=== PATIENT | female | born 1975 | race Caucasian/White ===

== ENCOUNTER → 2016-05-12 | Outpatient (CLI) | payer OTHER ==
--- NOTE | 2016-05-12 12:50 | KCIC ---
Chest PA and lateral Indication: Bronchitis difficulty breathing. Time of exam 12:31 p.m. No prior studies are available for comparison. The heart size is normal. The lungs are clear. No infiltrates are detected. No effusion or pneumothorax is identified. Impression: No acute cardiopulmonary process is detected. Electronically signed by: Tavo Roberts MD (May 12, 2016 12:49:21)
== END | disposition home or self-care (01) ==
LOC: KCIC 12:16
PROVIDERS: ATTEND Family Medicine
DX: J40 Bronchitis, not specified as acute or chronic (principal); R06.00 Dyspnea, unspecified
CPT/HCPCS: 71020

== ENCOUNTER → 2016-05-20 | Outpatient (CLI) | payer OTHER ==
--- NOTE | 2016-05-20 10:23 | KCIC ---
PROCEDURE CT chest without contrast. HISTORY Sternal discomfort. History of bronchitis and April 2016. TECHNIQUE Helical CT imaging of the chest is performed without IV contrast. PQRS: One or more the following individualized dose reduction techniques were utilized for the study: 1. Automated exposure control. 2. Adjustment of the mA and/or kV according to patient size. 3. Use of iterative reconstruction technique. COMPARISON None. FINDINGS 6 millimeter hypodense right thyroid nodule. There is no adenopathy in the chest, limited evaluation of the sandra without IV contrast. There is residual thymus in the anterior mediastinum, normal variant for a patient of this age. Cardiac size is normal, no pericardial effusion. The great vessels are normal caliber. Central airways are patent. No pleural abnormality. The lungs are clear. Visualized upper abdomen unremarkable. No acute bone abnormality. The sternum is intact. There is degenerative spondylosis of C6/C7. IMPRESSION No acute cardiopulmonary process. Electronically signed by: Jaya Joy MD (May 20, 2016 10:22:55)
== END | disposition home or self-care (01) ==
LOC: KCIC CT 09:57
PROVIDERS: ATTEND Family Medicine
DX: E04.1 Nontoxic single thyroid nodule (principal); M47.892 Other spondylosis, cervical region
CPT/HCPCS: 71250

== ENCOUNTER → 2017-03-20 | Outpatient (CLI) | payer OTHER | END | disposition home or self-care (01) | LOC: SLPLAB 18:44 | DX: G47.33 Obstructive sleep apnea (adult) (pediatric) (principal) | CPT/HCPCS: 95810 ==

== ENCOUNTER → 2017-12-28 | Outpatient (CLI) | payer OTHER ==
--- NOTE | 2017-12-28 17:01 | KCIC ---
History: Intermittent left foot pain for 1-2 years. Great toe paresthesia for one month. Comparison: None. Findings: AP, lateral, and oblique views of the left foot. No acute fracture or dislocation is identified. No significant degeneration is seen. Small plantar calcaneal enthesophyte is present. Impression: No acute osseous abnormality identified. Electronically signed by: Meño Dasilva MD (12/28/2017 4:57 PM) [facility]
== END | disposition home or self-care (01) ==
LOC: KCIC 16:17
PROVIDERS: ATTEND Family Medicine
DX: M79.672 Pain in left foot (principal); R20.2 Paresthesia of skin
CPT/HCPCS: 73630

== ENCOUNTER → 2018-07-18 | Outpatient (CLI) | payer OTHER ==
--- NOTE | 2018-07-18 15:42 | KCIC ---
Pelvic ultrasound HISTORY: Pelvic pressure. Transabdominal scan: Uterus and ovaries are poorly seen Endovaginal scan: Uterus measures 8.4 x 6.0 x 4.1 cm. Endometrium measures 7 mm without significant heterogeneity. The uterus demonstrates a heterogeneous appearance. The uterus is retroverted. Nabothian cyst is identified. The left ovary measures 3.1 cm with intact blood supply. The right ovary measures 3.6 cm with intact blood supply. Complex septated cyst of the right ovary measures 2 cm. Separate solid-appearing nodule of the right ovary measures 14 mm diameter and demonstrates some internal vascularity. Free fluid identified within the cul-de-sac. IMPRESSION: 1. Solid vascular mass of the right ovary, uncertain etiology but warrants further workup. Follow-up ultrasound in 2-6 weeks could be of benefit. 2. Complex appearing septated cyst of the right ovary measures 2 cm. 3. Mild free pelvic fluid. Electronically signed by: Meño Canales MD (07/18/2018 3:40 PM) [facility]
== END | disposition home or self-care (01) ==
LOC: KCIC US 12:02
PROVIDERS: ATTEND Nurse Practitioner Family
DX: N83.8 Other noninflammatory disorders of ovary, fallopian tube and broad ligament (principal); N88.8 Other specified noninflammatory disorders of cervix uteri; N94.89 Other specified conditions associated with female genital organs and menstrual cycle
CPT/HCPCS: 76830; 76856

== ENCOUNTER → 2018-08-17 | Outpatient (CLI) | payer OTHER ==
--- NOTE | 2018-08-17 15:47 | KCIC ---
Transabdominal and transvaginal sonography of the pelvis Clinical indications: Follow-up of right ovarian nodule COMPARISON: July 18, 2018. Transabdominal sonography: The uterus and ovaries are poorly visualized. The urinary bladder is not significantly distended. Therefore, transvaginal sonography will be performed. Transvaginal sonography: The uterus is retroverted. The longitudinal and AP and transverse dimensions of the uterus are 8.4 cm and 3.8 cm and 5.6 cm respectively. There is a small amount of fluid within the cervical canal. The endometrium is echogenic and measures 10 mm in thickness which is normal. No hyperemia is seen within the endometrial canal. A nabothian cyst of the cervix is seen. No uterine mass is seen otherwise. The left ovary measures 4.1 cm and 1.8 cm and 2.6 cm in size and contains a 17 mm follicular cyst. Color Doppler flow is seen within left ovary. The right ovary measures 2.9 cm and 3.4 cm and 2.4 cm in size. Color Doppler flow is seen within the right ovary. There is a follicular cyst measuring 14 mm in size. There is a complex solid appearing nodule measuring 14 mm x 13 mm x 13 mm. It measured 14 mm x 11 mm x 13 mm previously. Therefore, it has not changed significantly in size. Internal color flow is seen within it. No free fluid is seen around the left or right ovary. There is a small amount of physiologic free fluid within the cul-de-sac. IMPRESSION: Stable solid nodule of the right ovary. Recommend continued sonographic follow-up in 6 months. Bilateral follicular ovarian cysts. Electronically signed by: Yves Iniguez MD (08/17/2018 3:43 PM) [place] [id number]
== END | disposition home or self-care (01) ==
LOC: KCIC US 10:24
PROVIDERS: ATTEND Obstetrics & Gynecology
DX: N83.02 Follicular cyst of left ovary (principal); N83.01 Follicular cyst of right ovary; N83.8 Other noninflammatory disorders of ovary, fallopian tube and broad ligament; N88.8 Other specified noninflammatory disorders of cervix uteri
CPT/HCPCS: 76830; 76856

== ENCOUNTER → 2018-11-16 | Outpatient (CLI) | payer OTHER ==
[~2018-11-16] MED LIST: CYAN250012 PO; DICL75TA PO; MULT1TAB52 PO; OXYC1TAB19 PO; PYRI100T PO
[2018-11-16 13:26] LABS: BASO # 0.1 x10^3/uL (0.0-0.2); BASO % 1 % (0-3); EOS % 0 % (0-3); HEMATOCRIT 37.7 % (36.0-47.0); HEMOGLOBIN 12.9 g/dL (12.0-15.5); LYMPH # 2.7 x10^3/uL (1.0-4.8); LYMPH % 35 % (24-48); MEAN CORPUSCULAR HEMOGLOBIN 32 pg (25-35); MEAN CORPUSCULAR HGB CONC 34 g/dL (31-37); MEAN CORPUSCULAR VOLUME 93 fL (79-100); MONO # 0.7 x10^3/uL (0.0-1.1); MONO % 9 % (0-9); NEUT # 4.3 x10^3/uL (1.8-7.7); NEUT % 56 % (31-73); PLATELET COUNT 265 x10^3/uL (140-400); RED BLOOD COUNT 4.08 x10^6/uL (3.50-5.40); RED CELL DISTRIBUTION WIDTH 13.1 % (11.5-14.5); WHITE BLOOD COUNT 7.8 x10^3/uL (4.0-11.0)
--- NOTE | 2018-11-16 13:27 | NUR ---
Patient demonstrated use of incentive spirometry and achieved 3000ml
[2018-11-16 13:30] LABS: BILIRUBIN,URINE NEGATIVE (NEG); CLARITY,URINE CLEAR; COLOR,URINE YELLOW; NITRITE,URINE NEGATIVE (NEG); PROTEIN,URINE NEGATIVE (NEG-TRACE)
[2018-11-16 13:46] LABS: BACTERIA,URINE MANY /HPF (0-FEW); RBC,URINE 0 /HPF (0-2); SQUAMOUS EPITHELIAL CELL,UR FEW /LPF
[2018-11-16 13:51] LABS: ALBUMIN 3.5 g/dL (3.4-5.0); ALBUMIN/GLOBULIN RATIO 0.9 (1.0-1.7); CALCIUM 8.8 mg/dL (8.5-10.1); CREATININE 0.8 mg/dL (0.6-1.0); GFR 77.9; POTASSIUM 3.6 mmol/L (3.5-5.1); TOTAL BILIRUBIN 0.4 mg/dL (0.2-1.0); TOTAL PROTEIN 7.2 g/dL (6.4-8.2)
--- NOTE | 2018-11-20 16:38 | NUR ---
PATIENT URINE CULTURE ABNORMAL,WITH UTI AND SYMONE AL RN IN PAT OFFICE CALLED 11/19/2018 AT AROUND 1620. CALLED PATIENT AND HER PHARMACY 11/19/2018. PATIENT WAS CALLED THIS MORNING 10/21/2018 AND SHE SAID SHE STARTED TAKING NITROFURANTOIN 100 MG. 1 TAB BID 11/19/18 EVENING.
== END | disposition home or self-care (01) ==
LOC: SURGPAT 12:30
PROVIDERS: ATTEND Obstetrics & Gynecology
DX: Z01.818 Encounter for other preprocedural examination (principal)
CPT/HCPCS: 36415; 80053; 81001; 85025; 87086; 87186

== ENCOUNTER 2018-11-22 05:45 | Observation (INO) | payer OTHER ==
[~2018-11-22] VITALS: Ht 177.8 cm; Wt 99.7 kg
[2018-11-22] VITALS (9 sets, daily range): BP systolic 120–140; BP diastolic 70–92
[2018-11-22] MEDS ORDERED: fentaNYL PF VIAL 100 MCG/2 ML VIAL IV PRN (07:00)
[2018-11-22] MEDS ORDERED: IV RINGERS,LACTATED 1000ML 1,000 ML IV SCH (07:00)
[2018-11-22] MEDS ORDERED: ONDANSETRON PF 4 MG/2 ML VIAL. IV PRN ×2 (07:00→12:15)
[2018-11-22] MEDS ORDERED: PROCHLORPERAZINE 10 MG/2 ML VIAL. IV PRN (07:00)
[2018-11-22] MEDS ORDERED: DEXAMETHASONE SOD PHOS 4 MG/ML VIAL ONE (07:17)
[2018-11-22] MEDS ORDERED: PROPOFOL 20 ML IV ONE (07:17)
[2018-11-22] MEDS ORDERED: ONDANSETRON PF 4 MG/2 ML VIAL. ONE (07:17)
[2018-11-22] MEDS ORDERED: LIDOCAINE 2% PF 5 ML VIAL. ONE (07:17)
[2018-11-22] MEDS ORDERED: KETOROLAC 30 MG/ML VIAL. ONE (07:18)
[2018-11-22] MEDS ORDERED: ROCURONIUM 50 MG/5 ML VIAL. ONE (07:18)
[2018-11-22] MEDS ORDERED: fentaNYL PF VIAL 100 MCG/2 ML VIAL ONE ×4 (07:18→12:27)
[2018-11-22] MEDS ORDERED: MIDAZOLAM HCL/PF 2 MG/2 ML VIAL. ONE (07:18)
[2018-11-22] MEDS ORDERED: BUPIVACAINE-EPI 0.25%-1:200000 MPF 30 ML VIAL. INJ ONE (08:00)
[2018-11-22] MEDS ORDERED: INDIGOTINDISULFONATE SODIUM 40 MG/5 ML AMPUL. ONE (08:00)
[2018-11-22] MEDS ORDERED: ESTROGENS, CONJ VAGINAL CREAM 30GM TUBE. ONE (08:00)
[2018-11-22] MEDS ORDERED: SEVOFLURANE > 120 MINUTES. IH ONE (09:14)
[2018-11-22] MEDS ORDERED: NEOSTIGMINE METHYLSULFATE 5 MG/5 ML SYRINGE. ONE (09:33)
[2018-11-22] MEDS ORDERED: GLYCOPYRROLATE 1 MG/5 ML VIAL. ONE (09:33)
--- NOTE | 2018-11-22 10:47 | PDOC ---
Provider Note Provider Note Date: 11/22/2018 time 10:45 AM Request was made by Dr. Hatch for intraoperative consult for evaluation of possible trocar bowel injury as well as help in identifying the left ureter. Scald the operating room 6 patient was intubated in Trendelenburg and lithotomy Dr. Hatch Jin begun doing a laparoscopic hysterectomy. She stated and noted that there were quite a few adhesions upon entering the abdomen she felt there was trocar injury to the omentum was concerned about the transverse colon on visualizing the area there appeared to be no injury to transverse colon. She als o asked for help in identifying the left ureter she had already identified the right ureter and taken down the right side of the uterus and ovary from that side there was a segment of sigmoid colon that was attached to the lateral wall on the left side which was most likely obstructing the view of the ureter these attachments were taken down upon rolling the sigmoid colon more medially the ureter was then identified. This allowed for her to continue with her hysterectomy and I left the OR at that point ARSEN COHEN MD Nov 22, 2018 10:47
[2018-11-22] MEDS ORDERED: PHENYLEPHRINE in 0.9% NACL PF 1 MG/10 ML SYRINGE. IV ONE (10:55)
[2018-11-22] MEDS ORDERED: MORPHINE SULFATE 10 MG/ML VIAL. ONE (11:10)
[2018-11-22] MEDS ORDERED: ALBUMIN HUMAN 5% 500 ML IV ONE (11:23)
--- NOTE | 2018-11-22 12:12 | PDOC ---
BRIEF OPERATIVE NOTE Date: Nov 22, 2018 Pre-Op Diagnosis MSH 6, ovarian mass Post-Op Diagnosis endometriosis, adhesive disease Procedure Performed LAVH/BSO/adhesiolysis/pelvic washings and removal of umbilical lesion Surgeon Dr. Susannah Hatch intraoperative consult with Dr. De La Vega for assistance with bowel adhesions Machine Operators UBALDO Antony Anesthesiologist Quique Anesthesia Type: General Blood Loss 1000cc IV Fluid 1400cc crystalloid and 500cc hespan Urine Output 300cc clear via sal Specimens Obtained cervix, uterus, bilateral tubes and ovaries; umbilical lesion, pelvic washing Findings umbilical lesion, adhesive disease with colon adhesed to bilateral sidewalls near IP ligaments; normal right tube, but the right ovary was stuck to pelvic side wall; stage 3 endometriosis; omentum to right side of abdominal wall RV uterus; normal left tube and ovary Complications none Operative Note [id number] SUSANNAH HATCH MD Nov 22, 2018 12:12
[2018-11-22] MEDS ORDERED: 0.9 % SODIUM CHLORIDE 10 ML DISP.SYRIN. IV PRN (12:15)
[2018-11-22] MEDS ORDERED: CALCIUM CARBONATE 500 MG TAB.CHEW PO PRN (12:15)
[2018-11-22] MEDS ORDERED: SIMETHICONE 80 MG TAB.CHEW PO PRN (12:15)
[2018-11-22] MEDS ORDERED: MAG HYDROX/ALUMINUM HYD/SIMETH 30 ML ORAL.SUSP PO PRN (12:15)
[2018-11-22] MEDS ORDERED: NALOXONE 0.4 MG/ML VIAL. IV PRN (12:15)
[2018-11-22] MEDS ORDERED: diphenhydrAMINE 50 MG/ML VIAL IV PRN (12:15)
[2018-11-22] MEDS ORDERED: diphenhydrAMINE HCL 25 MG CAPSULE PO PRN (12:15)
[2018-11-22] MEDS ORDERED: MORPHINE SULFATE 2 MG/ML VIAL. IV PRN (12:15)
[2018-11-22] MEDS ORDERED: MAGNESIUM HYDROXIDE 2,400 MG/30 ML ORAL.SUSP. PO PRN (12:15)
[2018-11-22] MEDS ORDERED: LACTULOSE 20 GM/30 ML SOLUTION. PO PRN (12:15)
[2018-11-22] MEDS ORDERED: HYDROcodone/APAP 5/325MG 1 TAB TABLET PO PRN (12:15)
[2018-11-22] MEDS ORDERED: ZOLPIDEM 5 MG TABLET. PO PRN (12:15)
[2018-11-22] MEDS: fentaNYL PF VIAL 100 MCG/2 ML VIAL IV PRN ×3 (12:33→14:35)
[2018-11-22] MEDS ORDERED: MORPHINE SULFATE 2 MG/ML VIAL. ONE (12:51)
[2018-11-22] MEDS: MORPHINE SULFATE 2 MG/ML VIAL. IV PRN ×2 (12:55→13:09)
[2018-11-22] MEDS ORDERED: PROCHLORPERAZINE 10 MG/2 ML VIAL. ONE (12:56)
[2018-11-22] MEDS ORDERED: HYDROmorphone 2 MG/ML VIAL ONE (12:57)
[2018-11-22] MEDS: HYDROmorphone 2 MG/ML VIAL IV PRN ×2 (13:01→13:13)
--- NOTE | 2018-11-22 13:05 | OP ---
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 PROCEDURES: LAVH, BSO adhesiolysis, pelvic washings and removal of umbilical lesion. SURGEON: Fabi Hatch MD with an intraoperative consult with Dr. De La Vega for assistance with bowel adhesions, identification of the left ureter and to examine a piece of the omentum that looked like it had been just barely touched on initial entry. [employer]: UBALDO Pena. ANESTHESIOLOGIST: Salvador Lei MD ANESTHESIA: General. BLOOD LOSS: 1000 mL. URINE OUTPUT: 300 mL clear via Lew catheter. INTRAVENOUS FLUIDS: 1400 mL of crystalloid and 500 mL of Hespan. SPECIMENS: Cervix, uterus, bilateral tubes and ovaries. Umbilical lesion and pelvic washings. FINDINGS: She had an umbilical lesion upon initial exam, adhesive disease with colon adhesed to bilateral sidewalls near the infundibulopelvic ligaments, normal right tube and the right ovary was completely stuck to the pelvic sidewall, stage 3 endometriosis, omentum and the sigmoid adhesed to the right pelvic sidewall and anterior abdominal wall and the right lower side, a retroverted uterus, normal left tube and ovary. COMPLICATIONS: None. DESCRIPTION OF PROCEDURE: This patient was taken to the operating room where general anesthesia was placed. The patient was placed in dorsal lithotomy position in [facility]. The patient's abdomen and vagina were both prepped and draped in the normal sterile fashion and a Lew catheter had been inserted under sterile technique. Upon my arrival, a timeout was performed. Once everyone agreed and she had received her antibiotics, a bivalve speculum was placed in the patient's vagina. A single-tooth tenaculum was used to grasp the anterior lip of the cervix. A 10 mL of 0.25% Marcaine with epinephrine was used to circumferentially inject around the cervix for both hemodissection and hemostatic purposes later. Once this was done, top gloves were discarded and changed. The speculum was removed first and top gloves were discarded and changed and attention was then turned above. Upon looking at the umbilical area to do an infraumbilical incision, a large 1 cm lesion was kind of peeled out of the inferior edge of the umbilicus, so it was cut off and removed and passed for permanent pathology, so once it was cut and removed, it was sewn with 3-0 Vicryl shut and then I went below that lesion, made a small incision, used curved Tessa to dissect through the subcuticular layer to the fascia and used the 5 mm Visiport to directly enter. Initially, I was not through the peritoneum and I was insufflating the subcuticular cavity and so I did it again and got in, but I could see just at the tip of the blunt trocar, a little tiny red on the omentum beneath me, so I put her in slight Trendelenburg and upon initial entry could see the adhesions as described above, especially on the right side, but I found an area clear of the adhesions, transilluminating the abdominal wall and making a small incision and placing the 5 mm blunt trocar under direct visualization without difficulty. I then used the [place] to lift up the omentum, make sure it was clear underneath and the bowel was good, it was and then I put her in Trendelenburg and we put the left lower quadrant port in as well. Once it was in, the 4-5 mL of air was placed in the left trocar, right trocar and moved the camera to a lateral port, looked at the umbilical when it was good and insufflated it, so at this point, we started looking and finding that there was a loop of bowel going down over the IP on the left, which made it difficult to identify the ureter because she had endometriosis on the left pelvic sidewall. The right tube and ovary were stuck to the right sidewall, was able to get the right tube up, which then I could see the ovary, I did take down all the right-sided adhesions. They were a lot filmy. I peeled them down with the [place], was able to get it down. I was able to identify the ureter as it went over the pelvic brim and near the IP ligament and shot down into the pelvis to make sure that where the ovary was stuck was above it, it was immediately above it, but I could grab it and pull it up and still watch that ureter peristalse and beneath the area where the ovary was. Once it was up, I then with the LigaSure across to the right infundibulopelvic ligament with the ovary up and away now, cauterized and cut it and then went through the right round ligament as well and started creating the bladder flap sharply while pushing cephalad on the uterus and taking down the bladder flap sharply, elevating the bladder flap and using the monopolar hook to cut across and then peel it down, so I got the bladder flap down. At this point, though I looked several times, could not see the ureter on the left and bowel adhesions were thicker on that IP ligament with the colon, so I did ask for a general surgeon to come in to help me taken down to identify the ureter. Dr. De La Vega was in-house and nearby and came in and assisted and he then took the bowel off the left infundibulopelvic ligament and opened up that left pelvic sidewall for me, the peritoneum and we were able to positively identify the ureter well below the level of the left tube and ovary. We thought it should have been out of the way, but we did positively identify the left ureter peristalsing low well out of the way of the left tube and ovary and there were no adhesions on this side. With the endometriosis and the scar tissue on the right side, I just wanted to ensure that we had identified the ureter before crossing the IP ligament, cauterizing and cutting it and removing the left ovary on this side. Once this was identified, he then went back above for me. We reversed our Trendelenburg, looked at the omentum and everything and he helped me look at that one little area on the omentum and did confirm what I thought earlier that it was indeed only omentum, did not go through and through and the bowel was fine, so he did look at that for me as well and double checked that initial entry with a little bit of blood on the omentum I saw, so he checked that. At this point, Dr. De La Vega was scrubbed out and I finished the hysterectomy, so I crossed the left infundibulopelvic ligament with the LigaSure, cauterized it and cut it, pulled it towards the right across the left round ligament and went down and further, met my bladder flap anteriorly. I went back to the right side and obtained the uterine vessels and inched my way through the cardinal and broad ligaments hugging the cervix posteriorly and going through the cardinal and broad ligaments, cauterizing and cutting until I was down to the level of the uterosacral ligament on the right side. On the left side, I went back and was able to get the uterine and the uterus began blanching. It was completely free posteriorly. The bladder was down anteriorly, but it was harder to go down to the uterosacral on this side and was thicker and a little bit different with the end of it, so at this point since I had gotten all the blood supply, the right side was low, the bladder was down and there was nothing posteriorly, I decided to go vaginally, so all instruments were removed and attention was turned vaginally. The single tooth and Valtchev were removed. A weighted speculum was placed in the patient's vagina. Thyroid Otis clamps were placed on the anterior and posterior lips of the cervix respectively. A scalpel was used to make a circumferential incision in the cervix. An open Ray-Ciaran 4 x 4 was used to gently push up the anterior bladder peritoneum. When the open Ray-Ciaran was used to gently push up the anterior bladder peritoneum, I did easily get in the anterior cul-de-sac, so it was removed, passed off and the curved Duffield was placed in the anterior cul-de-sac. At this point, the cervix was elevated and the posterior cul-de-sac was sharply entered with the curved Grubbs scissors. A #0 Vicryl stitch was used to secure the posterior peritoneum here to the vaginal cuff. It was tagged with a curved Tessa clamp and the needle was cut and passed off. The short weighted speculum was removed and replaced with the long weighted Jewel speculum in the posterior cul-de-sac. Curved Westley clamps x 2 were placed on the patient's left uterosacral ligament where they were doubly clamped with curved Heaneys, cut with Grubbs scissors and suture ligated x 2 with 0 Vicryl. The second one was taken through the vaginal cuff, securing uterosacral ligament to the vaginal cuff. It was tagged with a straight Tessa clamp and the needle was cut and passed off. When I moved the retractor over to the other side to place the curved Heaneys on, there was only posterior peritoneum left, so the mixture delineated this and it was cauterized and cut. All attachments on the right side were gone where I went down low, so I did take an 0 Vicryl and go through where the uterosacral was and bring it up and put an interrupted suture in it and took it through the vaginal cuff, so I would have a tag over here and then tagged it with a straight Tessa clamp and cut and passed the needle off. Once this was done, the entire right side was free. I then did go back on the left side, took the curved mixture through the remaining pedicle and the vaginal LigaSure was used to cauterize and cut the remaining pedicle. The cervix, uterus, bilateral tubes and ovaries were delivered in total and passed off for permanent pathology. Sponge stick was used to examine all the pedicles, they appeared to be dry. The long Allis was used to grasp the anterior bladder peritoneum. The long Jewel speculum was removed and replaced it with the short weighted vaginal speculum and again everything was reexamined. There was a slight vessel seen on the right side that was easily grasped with Albanian's and going behind it and cauterizing it under direct visualization that was low on the posterior cuff tear. Once this was done, all the clots and debris from above were cleared out. There was no rundown and all the remaining pedicles were hemostatic. Once this was done, 2-0 Vicryl was taken through the anterior bladder peritoneum, left uterosacral ligament, posterior peritoneum and right uterosacral ligament, thus closing the peritoneum in a pursestring like fashion. Once this was done that was clipped. The right and left uterosacral tags were clipped. A full length 2-0 Vicryl was used to close the vaginal cuff in an anterior to posterior running locked fashion and tied to that posterior cuff tag. It was examined with a sponge stick and was completely hemostatic and looked great. At this point, all instruments were removed from the vagina. All gloves were discarded and changed and attention was turned back above for a second look. All sponge, lap and needle counts had been correct x 2 by OR personnel before going above. At this point, the patient was placed back in Trendelenburg, gas was reinsufflated and copious irrigation revealed complete hemostasis. Tisseel was placed over the cuff with excellent results. All the adhesion sites were dry, but I did place Abigail over those just for hemostasis. The right and left pericolic gutters were clear, like I said all the adhesion sites were dry, Abigail was placed over those. The cuff remained hemostatic for the right and left lower quadrant ports. The gas was taken out of the cuff of the trocar. They were removed under direct visualization. These were hemostatic. The gas was removed from the trocar of the umbilical port, but it was left in and the gas was taken out of the abdominal cavity through this port and then it was removed. All three port sites were closed with 4-0 nylon at the skin and injected with 10 mL of 0.25% Marcaine with epinephrine. The patient was awakened from anesthesia. The Lew was removed and she was brought to recovery room in stable condition. FABI HATCH MD DR: JENNA/kyler JOB#: [id number] / [id number]
[2018-11-22 13:41] LABS: HEMATOCRIT 37.1 % (36.0-47.0); HEMOGLOBIN 12.8 g/dL (12.0-15.5); RED BLOOD COUNT 4.03 x10^6/uL (3.50-5.40); RED CELL DISTRIBUTION WIDTH 12.9 % (11.5-14.5); WHITE BLOOD COUNT 14.1 x10^3/uL (4.0-11.0)
[2018-11-22] MEDS: BENZOCAINE/MENTHOL LOZENGE. PO PRN (16:24)
[2018-11-22] MEDS: oxyCODONE/APAP 5/325 1 TAB TABLET PO PRN (16:25)
--- NOTE | 2018-11-22 17:03 | NUR ---
Dr Hatch informed of pt hgb done today 12.8
[2018-11-23 00:20] VITALS: BP 121/81
[2018-11-23] MEDS: oxyCODONE/APAP 5/325 1 TAB TABLET PO PRN (00:42)
[2018-11-23] MEDS: BENZOCAINE/MENTHOL LOZENGE. PO PRN ×2 (00:46→09:21)
--- NOTE | 2018-11-23 00:51 | NUR ---
Noted patient's temp 99.4, ice water given, encouraged to take deep breaths to open lungs, pain medication given for pain 5/10. to monitor.
--- NOTE | 2018-11-23 01:55 | NUR ---
Patient decided not to be connected to scd's, as she is ambulatory, "I've been getting up and walking..I don't think I need them..." monitoring.
[2018-11-23 04:08] VITALS: BP 120/80
--- NOTE | 2018-11-23 04:41 | NUR ---
Patient's iv fluids have not been restarted, as she is drinking sufficiently.
[2018-11-23 05:25] LABS: CALCIUM 8.7 mg/dL (8.5-10.1); CREATININE 0.8 mg/dL (0.6-1.0); GFR 77.9; POTASSIUM 3.7 mmol/L (3.5-5.1)
--- NOTE | 2018-11-23 08:56 | PDOC ---
SURGICAL PROGRESS NOTE Subjective Doing well without complaints. Mild headache is only thing. resting comfortably, not even taking pain meds. Voiding without catheter and tolerating PO. Ambulating well and steady on feet. +flatus already too Vital Signs Vital Signs Date Time Temp Pulse Resp B/P (MAP) Pulse Ox O2 Delivery O2 Flow Rate FiO2 11/23/18 04:08 98.8 98 20 120/80 (93) 97 Room Air 98.8 11/22/18 15:30 2.0 I&O Intake and Output 11/23/18 07:00 Intake Total 800 ml Output Total 1500 ml Balance -700 ml Intake Oral 800 ml Output Urine Total 500 ml Estimated Blood Loss 1000 ml PATIENT HAS A ARNETT: No General: Alert, Oriented X3, Cooperative, No acute distress HEENT: Atraumatic Heart: Regular rate Abdomen: Soft, No tenderness, Other (soft, NT, all port sites, c/d/i) Extremities: No clubbing, No cyanosis, No edema, No tenderness/swelling Skin: No rashes, No breakdown, No significant lesion Neuro: Normal speech Psych/Mental Status: Mental status NL, Mood NL Labs Laboratory Tests Test 11/22/18 06:23 11/22/18 13:30 11/23/18 03:40 Bedside Urine HCG, Qualitative Hcg negative (Negative) White Blood Count 14.1 x10^3/uL (4.0-11.0) Red Blood Count 4.03 x10^6/uL (3.50-5.40) Hemoglobin 12.8 g/dL (12.0-15.5) Hematocrit 37.1 % (36.0-47.0) 31.3 % (36.0-47.0) Mean Corpuscular Volume 92 fL (79-100) Mean Corpuscular Hemoglobin 32 pg (25-35) Mean Corpuscular Hemoglobin Concent 35 g/dL (31-37) Red Cell Distribution Width 12.9 % (11.5-14.5) Platelet Count 238 x10^3/uL (140-400) Sodium Level 141 mmol/L (136-145) Potassium Level 3.7 mmol/L (3.5-5.1) Chloride Level 106 mmol/L (98-107) Carbon Dioxide Level 28 mmol/L (21-32) Anion Gap 7 (6-14) Blood Urea Nitrogen 7 mg/dL (7-20) Creatinine 0.8 mg/dL (0.6-1.0) Estimated GFR (Cockcroft-Gault) 77.9 Glucose Level 112 mg/dL (70-99) Calcium Level 8.7 mg/dL (8.5-10.1) Laboratory Tests Test 11/22/18 13:30 11/23/18 03:40 White Blood Count 14.1 x10^3/uL (4.0-11.0) Red Blood Count 4.03 x10^6/uL (3.50-5.40) Hemoglobin 12.8 g/dL (12.0-15.5) Hematocrit 37.1 % (36.0-47.0) 31.3 % (36.0-47.0) Mean Corpuscular Volume 92 fL (79-100) Mean Corpuscular Hemoglobin 32 pg (25-35) Mean Corpuscular Hemoglobin Concent 35 g/dL (31-37) Red Cell Distribution Width 12.9 % (11.5-14.5) Platelet Count 238 x10^3/uL (140-400) Sodium Level 141 mmol/L (136-145) Potassium Level 3.7 mmol/L (3.5-5.1) Chloride Level 106 mmol/L (98-107) Carbon Dioxide Level 28 mmol/L (21-32) Anion Gap 7 (6-14) Blood Urea Nitrogen 7 mg/dL (7-20) Creatinine 0.8 mg/dL (0.6-1.0) Estimated GFR (Cockcroft-Gault) 77.9 Glucose Level 112 mg/dL (70-99) Calcium Level 8.7 mg/dL (8.5-10.1) I have reviewed the following labs, vitals, nursing Pulmonary: No pertinent hx GI: No pertinent hx Heme/Onc: No pertinent hx Psych: No pertinent hx Infectious disease: No pertinent hx ENT: No pertinent hx Renal/: No pertinent hx Endocrine: No pertinent hx Dermatology: No pertinent hx Assessment/Plan POD#1 s/p LAVH/BSO/adhesiolysis with endometriosis Routine PO Care d/c to home NPV x 6 weeks light/limited activity x 2 weeks already has pain meds at home ok for otc iburpofen as needed NO driving while on narcotic pain meds keep scheduled follow up in one week call or return sooner for any other questions or concerns not limited to but including pain unrelieved with pain meds, increased or unexplained vaginal bleeding or T>100.4 FABI JAY MD Nov 23, 2018 08:56
[2018-11-23] MEDS ORDERED: IBUPROFEN 400 MG TABLET. PO ONE (09:00)
--- NOTE | 2018-11-23 09:00 | PDOC3 ---
Discharge Summary Visit Information Date of Admission: Nov 22, 2018 Date of Discharge: Nov 23, 2018 Final Diagnosis pelvic pain, endometriosis Brief Hospital Course Allergies Allergies Coded Allergies Type Severity Reaction Last Updated Verified No Known Drug Allergies 11/22/18 No Vital Signs Vital Signs Date Time Temp Pulse Resp B/P (MAP) Pulse Ox O2 Delivery O2 Flow Rate FiO2 11/23/18 04:08 98.8 98 20 120/80 (93) 97 Room Air 98.8 11/22/18 15:30 2.0 Lab Results Laboratory Tests Test 11/22/18 06:23 11/22/18 13:30 11/23/18 03:40 Bedside Urine HCG, Qualitative Hcg negative (Negative) White Blood Count 14.1 x10^3/uL (4.0-11.0) Red Blood Count 4.03 x10^6/uL (3.50-5.40) Hemoglobin 12.8 g/dL (12.0-15.5) Hematocrit 37.1 % (36.0-47.0) 31.3 % (36.0-47.0) Mean Corpuscular Volume 92 fL (79-100) Mean Corpuscular Hemoglobin 32 pg (25-35) Mean Corpuscular Hemoglobin Concent 35 g/dL (31-37) Red Cell Distribution Width 12.9 % (11.5-14.5) Platelet Count 238 x10^3/uL (140-400) Sodium Level 141 mmol/L (136-145) Potassium Level 3.7 mmol/L (3.5-5.1) Chloride Level 106 mmol/L (98-107) Carbon Dioxide Level 28 mmol/L (21-32) Anion Gap 7 (6-14) Blood Urea Nitrogen 7 mg/dL (7-20) Creatinine 0.8 mg/dL (0.6-1.0) Estimated GFR (Cockcroft-Gault) 77.9 Glucose Level 112 mg/dL (70-99) Calcium Level 8.7 mg/dL (8.5-10.1) Laboratory Tests Test 11/22/18 13:30 11/23/18 03:40 White Blood Count 14.1 x10^3/uL (4.0-11.0) Red Blood Count 4.03 x10^6/uL (3.50-5.40) Hemoglobin 12.8 g/dL (12.0-15.5) Hematocrit 37.1 % (36.0-47.0) 31.3 % (36.0-47.0) Mean Corpuscular Volume 92 fL (79-100) Mean Corpuscular Hemoglobin 32 pg (25-35) Mean Corpuscular Hemoglobin Concent 35 g/dL (31-37) Red Cell Distribution Width 12.9 % (11.5-14.5) Platelet Count 238 x10^3/uL (140-400) Sodium Level 141 mmol/L (136-145) Potassium Level 3.7 mmol/L (3.5-5.1) Chloride Level 106 mmol/L (98-107) Carbon Dioxide Level 28 mmol/L (21-32) Anion Gap 7 (6-14) Blood Urea Nitrogen 7 mg/dL (7-20) Creatinine 0.8 mg/dL (0.6-1.0) Estimated GFR (Cockcroft-Gault) 77.9 Glucose Level 112 mg/dL (70-99) Calcium Level 8.7 mg/dL (8.5-10.1) Brief Hospital Course Ms. Crane is a 43 old female who presented with pelvic pain, ovarian mass, heriditary cancer risk with [facility] and found to have pelvic adhesive disease and endometriosis. She underwent the surgery and Dr. De La Vega came in to assist on bowel adhesions and identifying left ureter. No complications and she has had an unremarkable postoperative course and has remained AFVSS. Will go home today Assessment Assessment POD#1 s/p LAVH/BSO/adhesiolysis with endometriosis Routine PO Care d/c to home NPV x 6 weeks light/limited activity x 2 weeks already has pain meds at home ok for otc iburpofen as needed NO driving while on narcotic pain meds keep scheduled follow up in one week call or return sooner for any other questions or concerns not limited to but including pain unrelieved with pain meds, increased or unexplained vaginal bleeding or T>100.4 Discharge Information Condition at Discharge: Stable Follow Up: Weeks Disposition/Orders: D/C to Home Scheduled Cyanocobalamin (Vitamin B-12) (Vitamin B12) 2,500 Mcg Tab.chew, 2,500 MCG PO DAILY for supplement, (Reported) Entered as Reported by: JENNIE HAY on 11/16/18 2765 Last Taken: Unknown Dose on 11/13/18 Last Action: Last Taken Edited on 11/22/18648 by CHICA CHASE Diclofenac Sodium (Diclofenac Sodium) 75 Mg Tablet.dr, 1 TAB PO BID for pain, #60 Ref 1 (Reported) Entered as Reported by: JENNIE HAY on 11/16/181251 Last Taken: Unknown Dose on 11/13/18 Last Action: Last Taken Edited on 11/22/18648 by CHICA CHASE Multivitamin (Multivitamins) 1 Each Tablet, 1 TAB PO DAILY for supplement, #90 Ref 3 (Reported) Entered as Reported by: JENNIE HAY on 11/16/181252 Last Taken: Unknown Dose on 11/13/18 Last Action: Last Taken Edited on 11/22/18648 by CHICA CHASE Pyridoxine Hcl (Vitamin B-6) 100 Mg Tablet, 100 MG PO DAILY for supplement, (Reported) Entered as Reported by: JENNIE HAY on 11/16/181252 Last Taken: Unknown Dose on 11/13/18 Last Action: Last Taken Edited on 11/22/18648 by CHICA CHASE Scheduled PRN Oxycodone/Apap 7.5-325 (Percocet 7.5-325 Mg Tablet ) 1 Each Tablet, 1 TAB PO PRN Q6HRS PRN for PAIN, Ref 0 (Reported) Entered as Reported by: JENNIE HAY on 11/16/18 125 Last Taken: 1 TABLET on 11/22/18 0500 Last Action: Last Taken Edited on 11/22/18648 by CHICA CHASE Patient Instructions Patient Instructions POD#1 s/p LAVH/BSO/adhesiolysis with endometriosis Routine PO Care d/c to home NPV x 6 weeks light/limited activity x 2 weeks already has pain meds at home ok for otc iburpofen as needed NO driving while on narcotic pain meds keep scheduled follow up in one week call or return sooner for any other questions or concerns not limited to but including pain unrelieved with pain meds, increased or unexplained vaginal bleeding or T>100.4 FABI JAY MD Nov 23, 2018 09:00
[2018-11-23 09:30] VITALS: BP 125/86
--- NOTE | 2018-11-26 10:08 | PATHOLOGY ---
Note [facility] Accession Number: [id number] TESTS RESULT FLAG UNITS REF RANGE LAB Clinician Provided Cytology Information No. of containers..01 Other (Miscellaneous) Source: PELVIC WASHINGS DIAGNOSIS: 02 PELVIC WASHINGS NEGATIVE FOR MALIGNANT CELLS. REACTIVE MESOTHELIAL CELLS ARE PRESENT. ABUNDANT RED BLOOD CELLS ARE PRESENT. Signed out by: 02 George Onofre MD, Pathologist NPI- [id number] Performed by: Daphne Davila Director Of Occupational Therapy ([facility]) Gross description: 01 50 ML, DARK RED, CLOUDY /LCS 02/13/1840 0000 Local FLAG LEGEND: L-Low Normal,H-High Normal,LL-Alert Low,HH-Alert High <-Panic Low,>-Panic High,A-Abnormal,AA-Critical Abnormal Performed at: [address] [place] [address] Eprhaim Taylor MD, 02 [facility] [address] [place] [address] George Onofre MD, Specimen Comment: A courtesy copy of this report has been sent to Specimen Comment: [phone], . Specimen Comment: Report sent to / DR MAR Performed at: [address] [place] [address] [address], [place], [place] [id number] MD Ephraim Taylor MD Phone: [phone]
--- NOTE | 2018-11-26 14:08 | PATHOLOGY ---
[facility] Accession Number: [id number] . 01 Material submitted: . PART A: umbilicus - UMBILICAL LESION PART B: uterus - UTERUS,CERVIX,FALLOPIAN TUBES AND BILATERAL OVARIES . 01 Clinical history: . None provided . 02 Diagnosis: A. Skin, umbilical lesion excision: - Polypoid compound nevus. . B. Uterus, bilateral fallopian tubes and ovaries, laparoscopic assisted vaginal hysterectomy with bilateral salpingo-oophorectomy: - Leiomyomas, uterine corpus, subserosal and intramural, multiple, the largest measuring 1.6 cm. - Adenomyosis, uterine corpus, focal. - Dyssynchronous endometrium showing focal glandular/stromal breakdown. - Congestion of bilateral fallopian tubes. - Ovarian capsular adhesions and focal endometriosis of ovaries. - Cystic follicles and regressing lutea of ovaries. (JPM:nancy; 11/26/2018) S 11/26/2018 1301 Local . 02 Comment: There is no atypia or evidence of malignancy. . 02 Electronically signed: . George Onofre MD, Pathologist NPI- [id number] . 01 Gross description: . A. The specimen is received in formalin, labeled "Rosa Maria, Denice, umbilical lesion" and consists of a 1.0 x 0.8 x 0.1 cm skin segment displaying a bosselated brown skin nodule measuring 0.8 x 0.5 cm. It is inked, serially sectioned, and entirely submitted in A1. . B. The specimen is received in formalin, labeled "Rosa Maria, Denice, cervix, uterus, fallopian tubes bilateral ovaries" and consists of a 106 g uterus with attached cervix measuring 8.6 x 6.1 x 4.1 cm. Attached are the bilateral tubo-ovarian complexes consisting of a right fimbriated fallopian tube measuring 8.0 cm in length and up to 0.6 cm in diameter with a detached disrupted ovary (3.1 x 2.3 x 1.7 cm). The right complex weighs 13 g. The left complex consists of a fimbriated fallopian tube measuring 6.0 cm in length and up to 0.6 cm in diameter with a loosely attached ovary (4.4 x 2.4 x 1.5 cm). The left complex weighs 14 g. The uterine serosa is weeks with scattered adhesions and 2 protruding subserosal nodules measuring 0.6 cm and 1.6 cm. The slitlike 1.5 cm cervical os is surrounded by glistening to hemorrhagic pink weeks ectocervical mucosa. It is bivalved revealing a granular to corrugated endocervical canal measuring 3.3 cm in length. The endometrial cavity is triangular measuring 3.5 cm in length and up to 3.4 cm in width which is lined by a pink-brown endometrium measuring 0.1 cm. The myometrium measures up to 1.9 cm with focal evidence of adenomyosis and multiple intramural nodules measuring up to 1.0 cm. The nodules show homogeneous white-weeks whorled cut surfaces without hemorrhage, necrosis, or calcifications. No additional masses or lesions are identified. . Both the right and left fimbriated fallopian tube segments are weeks-brown with hemorrhage and sectioning reveals a well-defined central lumen. The right ovary is cerebriform with a 1.6 cm defect. Sectioning reveals hemorrhagic cystic cut surfaces. The left ovary is weeks, hemorrhagic, and cerebriform. Sectioning reveals hemorrhagic cystic cut surfaces. Mail Clerk Bills sections are submitted as follows: . B1: Anterior cervix B2: Posterior cervix B3: Anterior endomyometrium B4: Posterior endomyometrium B5: Nodules B6: Right fallopian tube B7-B8: Right ovary B9: Left fallopian tube B10-B11: Left ovary (SDY; 11/23/2018) SYU/SYU 11/23/2018 1147 Local . 02 Pathologist provided ICD-10: D22.5, D25.1, D25.2, N80.0, N80.1 . 02 CPT . 208806, 606707 Specimen Comment: A courtesy copy of this report has been sent to Specimen Comment: [phone]. Specimen Comment: Report sent to Performed at: 01 [facility] [place] [id number] [facility] [address], [place], [place] [id number] MD Ephraim Taylor MD Phone: [phone] Performed at: [facility] [address] [place], [place] [id number] MD George Onofre MD Phone: [phone]
== END 2018-11-23 10:45 | disposition home or self-care (01) ==
LOC: SURG 05:45 → 3 NORTH 12:15
PROVIDERS: ADMIT Obstetrics & Gynecology; ATTEND Obstetrics & Gynecology
PROC: 0UT9FZZ Resection of Uterus, Via Natural or Artificial Opening With Percutaneous Endoscopic Assistance (ICD-10-PCS; principal; 2018-11-22 08:30)
DX: N80.1 Endometriosis of ovary (principal); K66.0 Peritoneal adhesions (postprocedural) (postinfection); N73.6 Female pelvic peritoneal adhesions (postinfective); N83.9 Noninflammatory disorder of ovary, fallopian tube and broad ligament, unspecified; N85.4 Malposition of uterus; R97.1 Elevated cancer antigen 125 [CA 125]
CPT/HCPCS: 36415; 58550; 80048; 81025; 85014; 85027; 86850; 86900; 86901; 86920; 88112; 88305; 88307; 96374; A7015; G0378; G0379; J0696; J0780; J1100; J1170; J2001; J2250; J2270; J2370; J2405; J2704; J2710; J3010; J3490; J7030; J7120; P9045; J1885

== ENCOUNTER → 2019-12-24 | Outpatient (CLI) | payer OTHER ==
[~2019-12-24] MED LIST changes: +MULT-445 PO; -MULT1TAB52 PO; -PYRI100T PO; +PYRI100T9 PO
--- NOTE | 2019-12-24 16:56 | KCIC ---
ELBOW LEFT 3V 12/24/2019 12:00 AM INDICATION: Elbow tendinitis COMPARISON: None available. TECHNIQUE: 3 views of the left elbow are provided. FINDINGS/ IMPRESSION: No significant elbow joint effusion. There is no acute fracture or dislocation. Joint spaces are maintained. Bone mineralization is within normal limits. Regional soft tissues are within normal limits. There is no soft tissue gas or osseous erosion. No radiopaque foreign body. Electronically signed by: Josi Rooney MD (12/24/2019 4:53 PM) JULIUS
== END ==
LOC: KCIC 12:44
PROVIDERS: ATTEND Family Medicine
DX: M77.8 Other enthesopathies, not elsewhere classified (principal); M67.824 Other specified disorders of tendon, left elbow; Z87.81 Personal history of (healed) traumatic fracture
CPT/HCPCS: 73080

== ENCOUNTER → 2020-04-03 | Outpatient (CLI) | payer OTHER ==
--- NOTE | 2020-04-03 11:18 | KCIC ---
Bilateral digital screening mammograms: Reason for examination: Routine baseline screening. Interpretation was made with the benefit of CAD. The skin and nipples show no abnormalities. No abnormal axillary lymph nodes are seen. The breast par enchyma is heterogeneously dense. (Breast density: Category C) There is a small nodular asymmetry med ial to the nipple line in the left cc view. This could be at the 6:30 or 11:30 B position. Further ev aluation with coned compression views and ultrasound is recommended. There is also some nodularity in the subareolar position of the right breast. This may represent superimposed tissues but further luz luation with coned compression views and ultrasound is recommended. There are no other dominant marcelo s, suspicious calcifications or architectural distortion. Scattered benign-appearing calcifications a re present. Impression: Nodular parenchymal asymmetry seen in the subareolar position of the right breast. Small nodular dens ity medial to the nipple line in the left breast on cc view possibly at the 11:30 B or 6:30 B positio n of the left breast. Recommend further evaluation bilaterally with coned compression views and ultra sound. Your patient's mammogram demonstrates that she has dense breast tissue (breast density category C or D), which could hide abnormalities, and if she has other risk factors for breast cancer that have bee n identified, she might benefit from supplemental screening tests that may be suggested by you as her ordering physician. Dense breast tissue, in and of itself, is a relatively common condition. Therefo re, this information is not provided to cause undue concern, but rather to raise your awareness and t o promote discussion with your patient regarding the presence of other risk factors, in addition to d ense breast tissue. Your patient's mammography results will be sent to her. BI-RADS Category 0: Incomplete. Needs additional imaging evaluation. "Our facility is accredited by the [employer] Mammography Program." This patient's information has been entered into a reminder system for the patient to be notified wit h the results of her examination and a target date for the next mammogram. Electronically signed by: Lilian Bang MD (04/03/2020 11:15 AM) [id number]
== END ==
LOC: KCIC MAMMO 09:17
PROVIDERS: ATTEND Obstetrics & Gynecology
DX: Z12.31 Encounter for screening mammogram for malignant neoplasm of breast (principal)
CPT/HCPCS: 77067

== ENCOUNTER → 2020-04-16 | Outpatient (CLI) | payer OTHER ==
--- NOTE | 2020-04-16 12:44 | KCIC ---
Bilateral diagnostic digital mammograms: Reason for examination: Parenchymal asymmetries on screening mammogram. Comparison is made to mammographic exam dated 04/03/2020. Coned compression views were obtained in CC and oblique projections bilaterally. The nodular parenchymal density in the right breast appears to represent superimposed tissue with no discrete mass evident. The nodular parenchymal density seen superiorly in the left breast appear to represent superimposed t issue. There is however still some nodular parenchymal density at the 7:00 B position of the left jese ast. IMPRESSION: No suspicious abnormality in the right breast with additional coned views. Small focus of nodular par enchymal asymmetry at the 7:00 B position of the left breast. Ultrasound to follow. BI-RADS Category 0: Incomplete. Needs additional imaging evaluation. Bilateral breast ultrasound: Ultrasound examination of both breasts was performed in the areas of mammographic concern and at the axilla. In the right breast, there is some ductal ectasia in the retroareolar 9:00 position but no discrete c ystic or solid masses are seen. No abnormal appearing lymph nodes are seen in the right axilla. In the left breast, no discrete cystic or solid nodule is seen. The patchy parenchymal asymmetry at t he 7:00 position probably represents normal fibroglandular tissue. No abnormal appearing lymph nodes are seen left axilla. IMPRESSION: No suspicious abnormalities evident in either breast. Recommend 6 month follow-up of the left breast with mammographic evaluation. BI-RADS Category 3: Probably Benign. "Our facility is accredited by the [employer] Mammography Program." This patient's information has been entered into a reminder system for the patient to be notified wit h the results of her examination and a target date for the next mammogram. Electronically signed by: Lilian Bang MD (04/16/2020 12:41 PM) [email or web address]
== END ==
LOC: KCIC US 07:56
PROVIDERS: ATTEND Obstetrics & Gynecology
DX: R92.8 Other abnormal and inconclusive findings on diagnostic imaging of breast (principal); N63.24 Unspecified lump in the left breast, lower inner quadrant
CPT/HCPCS: 76641; 77066

== ENCOUNTER → 2021-04-30 | Outpatient (CLI) | payer OTHER ==
--- NOTE | 2021-04-30 10:45 | KCIC ---
MR LUMBAR SPINE WO [id number] History: Reason: LOW BACK PAIN / Spl. Instructions: / History: Chronic lower back pain, getting wors e. Right hip pain is newer. Technique: Multiplanar, multi sequential MR imaging was performed of the lumbar spine. Comparison: None Findings: Normal vertebral body height and alignment. No fracture. Conus terminates at the normal location. No evidence of nerve root clumping. L1-L2: No canal or neuroforaminal narrowing. L2-L3: Small disc bulge. Mild facet arthropathy. No canal or neuroforaminal narrowing. L3-L4: Small disc bulge. Mild facet arthropathy. No canal or neuroforaminal narrowing. L4-5: Small disc bulge with left foraminal annular fissure. Moderate facet arthropathy. Right facet synovial cyst measures 0.9 x 0.7 cm (series 6 image 13 and series 3 image 10). The synovial cyst abut s and displaces the descending right L5 nerve root within the subarticular recess. Mild right neurofo raminal narrowing. L5-S1: Small disc bulge. Moderate to advanced facet arthropathy. No canal narrowing. Mild bilateral neuroforaminal narrowing. Impression: 1. Mild lumbar spondylosis most prominent L4-5. 2. L4-L5 moderate facet arthropathy with right synovial cyst abutting and displacing the descending right L5 nerve root. Correlate for radiculopathy. 3. Mild neuroforaminal narrowing, as described. Electronically signed by: Beck Riddle DO (04/30/2021 10:43 AM) [id number]
== END ==
LOC: KCIC MRI 08:38
PROVIDERS: ATTEND Family Medicine
DX: M47.817 Spondylosis without myelopathy or radiculopathy, lumbosacral region (principal); M51.26 Other intervertebral disc displacement, lumbar region; M48.061 Spinal stenosis, lumbar region without neurogenic claudication; M71.38 Other bursal cyst, other site; M54.40 Lumbago with sciatica, unspecified side; M62.81 Muscle weakness (generalized)
CPT/HCPCS: 72148

== ENCOUNTER → 2021-05-14 | Outpatient (CLI) | payer OTHER ==
[~2021-05-14] MED LIST changes: +AMIT10TA PO; +CYCL10TA19 PO; +DEXAMETHASONE PRES.FREE 10 MG/ML VIAL. ONE; +IOHEXOL 180 MG/ML 10 ML VIAL. ONE; +PREG150C PO; +QUET50TA5 PO
--- NOTE | 2021-05-14 13:51 | PDOC1 ---
INITIAL PAIN CONSULT DATE OF SERVICE: DOS: DATE: 05/14/21 TIME: 13:44 CHIEF COMPLAINT: Chief Complaint: Low back and right lower extremity pain HISTORY OF PRESENT ILLNESS: 46-year-old female presents with history of pain low back and right lower extremity for about 60 years worse over the past 2 months or so without any specific recent injury or accident that she is aware of but the pain became worse across the low back and into the right lower extremity in the posterior gluteus lateral thigh anterior thigh medial thigh some in the groin at times in the medial lower leg to the ankle patient reports is worse with walking standing change positions better with sitting or laying down but wakes him from sleep about 2-3 times a night patient reports it does not affect her bowel bladder control does affect her ability to walk. Patient has had physical therapy in the past also chiropractic treatment in the past exercise she is doing currently in at home and at the gym, has had epidural injections at an outside facility in the past as well all of which were helpful. Patient reports he been taking hydrocodone also Lyrica and amitriptyline neither which is helped the pain very much but she does take a Percocet occasionally which does decrease the pain by about 50%. Patient rates her disability rating 0-10 10 me the worst is a 9 with family unresponsively 7-9 with recreation social activity occupation 5 with sexual behavior 3 with self-care and 9 with life support activities. Patient reports the pain is constant in the back with walking standing change positions as well as standing in 1 position sharp in the leg and stabbing throbbing and shooting in the leg on the right side with tingling and radiating pain which is aching and burning as well on the right side. Patient reports easy fatigability the right lower extremity impaired left with walking and standing as well as changing positions. Patient did have an MRI scan of the lumbar spine showing L4-5 small disc bulge with left foraminal annular fissure and moderate facet arthropathy with right facet synovial cyst measuring 0.9 x 0.7cm abutting and displacing the descending right L5 nerve root within the subarticular recess with mild right neuroforaminal narrowing. Patient reports no bowel or bladder incontinence. PAST MEDICAL HISTORY: PMH: Arthritis, dizziness PREVIOUS SURGERIES: Past Surgical Hx: Hysterectomy, left knee ACL repair, right knee arthroscopy, deviated septum repair, ORIF left elbow, left knee surgery and eventual replacement CURRENT MEDICATIONS: Current Meds: Active Scripts Medications Dose Route/Sig Max Daily Dose Days Date Category Cyclobenzaprine Hcl 10 Mg Tablet 10 Mg PO PRN PRN 05/14/21 Reported Seroquel (Quetiapine Fumarate) 50 Mg Tablet 50 Mg PO PRN HS 05/14/21 Reported Lyrica (Pregabalin) 150 Mg Capsule 1 Cap PO BID 05/14/21 Reported Amitriptyline Hcl 10 Mg Tablet 1 Tab PO QHS 05/14/21 Reported Multivitamins (Multivitamin) 1 Each Tablet 1 Tab PO DAILY 11/16/18 Reported Vitamin B-6 (Pyridoxine Hcl) 100 Mg Tablet 100 Mg PO DAILY 11/16/18 Reported Vitamin B12 (Cyanocobalamin (Vitamin B-12)) 2,500 Mcg Tab.chew 2,500 Mcg PO DAILY 11/16/18 Reported Diclofenac Sodium 75 Mg Tablet.dr 1 Tab PO BID 11/16/18 Reported Percocet 7.5-325 Mg Tablet (Oxycodone/Acetaminophen) 1 Each Tablet 1 Tab PO PRN Q6HRS PRN 11/16/18 Reported ALLERGIES; Allergies: Coded Allergies: No Known Drug Allergies (Unverified , 11/22/18) FAMILY HISTORY: Family Hx: Breast cancer, cervical cancer, diabetes. SOCIAL HISTORY: Social Hx: Patient drinks alcohol about twice a week does not smoke not use any illegal licit recreational drugs is lives with her spouse has 2 children living at home and lives locally in [place], [place] REVIEW OF SYSTEMS: ROS: Positive for those items mentioned in history of present illness, all systems are reviewed, otherwise negative ,and are complete full and well-documented on patient's chart. PHYSICAL EXAM: VS: Pressure is 125/87 pulse 5 respirations 16 temperature is 97.8 F height is 5 feet 10 inches weight is 237 pounds. PE: PHYSICAL EXAMINATION: GENERAL: The patient is awake, alert, oriented, appropriate, very pleasant in demeanor, patient companied by her . HEENT: Shows normocephalic, atraumatic. Extraocular movements are intact and symmetrical. Oral cavity: Mucous membranes moist and pink. Dentition is intact. NECK: Shows anterior throat supple without palpable lymphadenopathy noted. Swallow reflex symmetrical. CHEST: Shows normal on inspection. Breath sounds are clear bilaterally, no rales rhonchi or wheezes auscultated. HEART: Shows S1, S2 clear. No murmurs auscultated. ABDOMEN: Soft, nontender, nondistended. No palpable organomegaly is noted. BACK: Shows spine grossly in the midline. Normal-appearing cervical lordotic curvature. There is slightly increased thoracic kyphosis, some mild flattening of the lumbar lordotic curvature. Lumbar paraspinous muscles show symmetrical on inspection, on palpation shows some moderate tenderness diffusely throughout the upper, middle and lower distribution of the paraspinous muscles bilaterally and also into the lower thoracic paraspinous musculature, firm and tender, but without specific trigger points, without radiation of pain. The patient has g ood rotational motion of the lumbar spine, both laterally as well as extension and flexion without significant difficulty. No tenderness over the spinous processes, sacrum or sacroiliac regions. EXTREMITIES: Lower extremities show deep tendon reflexes 2+ in the patellar and tendo calcaneus tendons. Motor exam is 4 on a scale of 5 with right dorsiflexion, extension, quadriceps and hamstring flexion and 5/5 on the left. Peripheral pulses are 1 posterior tibial. No peripheral edema is noted bilaterally. Lower extremities are warm and dry to touch, equal in color and appearance. Straight leg raise noted to be positive on the right about 45 degrees, left side is negative. Gaenslen's and Terry's maneuvers are negative bilaterally. The patient is able to stand, stand on her toes without significant difficulty or loss of balance walks with a slight favoring gait, favoring the right lower extremity, but not use any assistive devices to ambulate. SKIN: Shows warm and dry, good turgor. No edema. No sores, rashes or bruising throughout. IMPRESSION: Impression: 46-year-old female with long history low back and right lower extremity pain radicular fashion MRI scan lumbar spine as noted History of arthritis Plan: options were discussed with the patient including serve medical management physical therapies and interventional techniques. Patient would like to pursue interventional techniques. We discussed a lumbar epidural steroid injection using descriptions as well as anatomical models to describe the procedure. Risks were discussed including but not limited to: Bleeding, infection, possibility of epidural hematoma and subsequent neurological compromise, dural puncture, headaches, spinal cord and/or nerve damage, side effects of steroid medication, and poor results regarding pain control. Patient understands and wished to proceed. Patient will return to the clinic in approximately 2 weeks for follow-up, was counseled as to return appointment, activity level, and side effect to be aware of. Procedure is lumbar epidural steroid injection under local anesthetic using sterile prep and drape at the L4-5 level using C-arm fluoroscopic guidance in both AP and lateral views medications injected is 20 mg dexamethasone +10mL preservative-free normal saline and 2 mL contrast- condition at discharge is stable patient tolerated procedure well had no complications. DENISHA JOHNSON MD May 14, 2021 13:51
--- NOTE | 2021-05-14 13:52 | PDOC4 ---
Procedure Note: ICD 10 Code: ICD 10 Code: M54.16 M51.36 Procedure Note: Patient was consented for lumbar epidural steroid injection with fluoroscopic guidance. Risks were discussed including but not limited to: Bleeding, infection, possibility of epidural hematoma and subsequent neurological compromise, dural puncture, headaches, spinal cord and/or nerve damage, side effects of steroid medication, and poor results regarding pain control. Patient understands and wished to proceed. Procedure is lumbar epidural steroid injection under local anesthetic using sterile prep and drape at the L4-5 level using C-arm fluoroscopic guidance in both AP and lateral views medications injected is 20 mg dexamethasone +10mL preservative-free normal saline and 2 mL contrast- condition at discharge is stable patient tolerated procedure well had no complications. DENISHA JOHNSON MD May 14, 2021 13:52
== END | disposition home or self-care (01) ==
LOC: PNCL 09:12
PROVIDERS: ATTEND Anesthesiology
DX: M51.16 Intervertebral disc disorders with radiculopathy, lumbar region (principal); M79.604 Pain in right leg; M19.90 Unspecified osteoarthritis, unspecified site; G47.30 Sleep apnea, unspecified; Z79.899 Other long term (current) drug therapy; Z98.890 Other specified postprocedural states; Z72.89 Other problems related to lifestyle; Z90.710 Acquired absence of both cervix and uterus
CPT/HCPCS: 62323; 99214; J1100; Q9965; G0463

== ENCOUNTER → 2021-05-28 | Outpatient (CLI) | payer OTHER ==
[~2021-05-28] MED LIST changes: -DEXAMETHASONE PRES.FREE 10 MG/ML VIAL. ONE; +methylPREDNISolone ACETATE 40 MG/ML VIAL. ONE
--- NOTE | 2021-05-28 11:12 | PDOC ---
Progress Note - Pain Clinic Date of Service: DOS: DATE: 05/28/21 TIME: 11:09 Diagnosis: Dx: Lumbar radiculopathy with lumbar degenerative disc disease History or Present Illness: HPI: 46-year-old female returns for follow-up status post lumbar epidural steroid action x1. Patient reports about 40% improvement overall in the pain low back and right lower extremity patient reporting increased activity with being able to walk greater distances sit for longer periods doing household activities greater ease and comfort and try with greater ease and comfort patient has new pain today in the left lower extremity previously was on the right side radiating for the right leg but now some in the left side in the posterior lateral thigh as well patient reports is a 10 on scale 10 is worse over the past week 7-8 on average 6 at its least is a 7 today patient reports aching sharp shooting tingling burning and stabbing in the back cramping radiating the leg can be constant with activity standing and walking patient has recently seen her neurosurgeon who is recommending eventual surgical repair if not significantly improved with more conservative measures. Patient reports that she is somewhat troubled by the pain now in her left lower extremity as well as the right but did not have any new motor or sensory deficits some fatigability to right leg but not with the left. She reports no loss of motor function no bowel or bladder incontinence. Physical Exam: VS: Blood pressure is 141/88 pulse 111 respirations 18 temperature 98.5 F height is 5 foot 10 inches weight is 234 pounds. PE: PHYSICAL EXAMINATION: GENERAL: The patient is awake, alert, oriented, appropriate, very pleasant in demeanor HEENT: Shows normocephalic, atraumatic. Extraocular movements are intact and symmetrical. Oral cavity: Mucous membranes moist and pink. Dentition is intact. NECK: Shows anterior throat supple without palpable lymphadenopathy noted. Swallow reflex symmetrical. CHEST: Shows normal on inspection. Breath sounds are clear bilaterally, no rales or rhonchi auscultated. HEART: Shows S1, S2 clear. No murmurs auscultated. ABDOMEN: Soft, nontender, nondistended. No palpable organomegaly is noted. BACK: Shows spine grossly in the midline. Normal-appearing cervical lordotic curvature. There is slightly increased thoracic kyphosis, some flattening of the lumbar lordotic curvature. Lumbar paraspinous muscles show symmetrical on inspection, on palpation shows some moderate tenderness diffusely throughout the upper, middle and lower distribution of the paraspinous muscles, but without specific trigger points, without radiation of pain. The patient has good rotational motion of the lumbar spine, both laterally as well as extension and flexion without significant difficulty. EXTREMITIES: Lower extremities show deep tendon reflexes 2+ in the patellar and tendo calcaneus tendons. Motor exam is 4 on a scale of 5 with right dorsiflexion, extension, quadriceps and hamstring flexion and 5/5 on the left. Peripheral pulses are 1+ posterior tibial. No peripheral edema is noted bilaterally. Lower extremities are warm and dry to touch, equal in color and appearance. SKIN: Shows warm and dry, good turgor. No edema. No sores, rashes or bruising throughout. Procedure: Procedure: Options were discussed with patient. Patient's old chart was reviewed as her current medication regimen updated current review of systems updated today as well. We will proceed with a lumbar epidural steroid injection today with fluoroscopic guidance. Risks were discussed including but not limited to: Bleeding, infection, possibility of epidural hematoma and subsequent neurological compromise, dural puncture, headaches, spinal cord and/or nerve damage, side effects of steroid medication, and poor results regarding pain control. Patient understands and wished to proceed. Patient will follow up in approximately 2 weeks for follow-up, was counseled as to return appointment, activity level, and side effect to be aware of. Medication Injected: Med Injected: Procedure is lumbar epidural steroid injection under local anesthetic using sterile prep and drape at the L4-5 level using C-arm fluoroscopic guidance in both AP and lateral views medications injected is 120 mg methylprednisolone +10mL preservative-free normal saline and 2 mL contrast- condition at discharge is stable patient tolerated procedure well had no complications. Condition at Discharge: Condition at Discharge: Condition at discharge stable, paced tolerated procedure well and had no complications. DENISHA JOHNSON MD May 28, 2021 11:11
--- NOTE | 2021-05-28 11:12 | PDOC4 ---
Procedure Note: ICD 10 Code: ICD 10 Code: M54.16 M51.36 Procedure Note: Patient was consented for lumbar epidural steroid injection fluoroscopic guidance. Risks were discussed including but not limited to: Bleeding, infection, possibility of epidural hematoma and subsequent neurological compromise, dural puncture, headaches, spinal cord and/or nerve damage, side effects of steroid medication, and poor results regarding pain control. Patient understands and wished to proceed. Procedure is lumbar epidural steroid injection under local anesthetic using sterile prep and drape at the L4-5 level using C-arm fluoroscopic guidance in both AP and lateral views medications injected is 120 mg methylprednisolone +10mL preservative-free normal saline and 2 mL contrast- condition at discharge is stable patient tolerated procedure well had no complications. DENISHA JOHNSON MD May 28, 2021 11:12
== END | disposition home or self-care (01) ==
LOC: PNCL 10:30
PROVIDERS: ATTEND Anesthesiology
DX: M51.16 Intervertebral disc disorders with radiculopathy, lumbar region (principal); G47.30 Sleep apnea, unspecified; M19.90 Unspecified osteoarthritis, unspecified site; Z79.899 Other long term (current) drug therapy; Z72.89 Other problems related to lifestyle; Z98.890 Other specified postprocedural states
CPT/HCPCS: 62323; J1030; Q9965

== ENCOUNTER → 2021-06-21 | Outpatient (CLI) | payer OTHER ==
[~2021-06-21] MED LIST changes: +DOCU-109 PO; -IOHEXOL 180 MG/ML 10 ML VIAL. ONE; +METH-562 PO; -methylPREDNISolone ACETATE 40 MG/ML VIAL. ONE
[2021-06-21 14:34] LABS: BASO % 1 % (0-3); EOS % 0 % (0-3); HEMATOCRIT 40.5 % (36.0-47.0); HEMOGLOBIN 13.7 g/dL (12.0-15.5); LYMPH # 2.7 x10^3/uL (1.0-4.8); LYMPH % 36 % (24-48); MEAN CORPUSCULAR HEMOGLOBIN 31 pg (25-35); MEAN CORPUSCULAR HGB CONC 34 g/dL (31-37); MEAN CORPUSCULAR VOLUME 91 fL (79-100); MONO # 0.6 x10^3/uL (0.0-1.1); MONO % 7 % (0-9); NEUT # 4.2 x10^3/uL (1.8-7.7); NEUT % 56 % (31-73); PLATELET COUNT 305 x10^3/uL (140-400); RED BLOOD COUNT 4.46 x10^6/uL (3.50-5.40); RED CELL DISTRIBUTION WIDTH 14.1 % (11.5-14.5); WHITE BLOOD COUNT 7.5 x10^3/uL (4.0-11.0)
[2021-06-21 14:49] LABS: ALBUMIN 3.6 g/dL (3.4-5.0); ALBUMIN/GLOBULIN RATIO 0.8 (1.0-1.7); CALCIUM 9.3 mg/dL (8.5-10.1); GFR 59.4; POTASSIUM 3.7 mmol/L (3.5-5.1); TOTAL BILIRUBIN 0.6 mg/dL (0.2-1.0)
== END ==
LOC: SURGPAT 14:07
PROVIDERS: ATTEND Neurological Surgery
DX: Z01.812 Encounter for preprocedural laboratory examination (principal); M54.16 Radiculopathy, lumbar region; M71.30 Other bursal cyst, unspecified site; I10 Essential (primary) hypertension; Z20.822 Contact with and (suspected) exposure to COVID-19
CPT/HCPCS: 36415; 80053; 85025; 87641; U0003

== ENCOUNTER 2021-06-23 10:43 | Day surgery (SDC) | payer OTHER ==
[2021-06-21 17:54] VITALS: BP 125/93
--- NOTE | 2021-06-22 14:45 | PREOP HP ---
DATE OF SERVICE: 06/23/2021 PREOP HISTORY AND PHYSICAL HISTORY OF PRESENT ILLNESS: The patient is a pleasant 46-year-old who is having difficulty with low back pain and pain that radiates to both of her hips, right greater than left. There is also right inguinal region pain. The problems have been present for about 6 years intermittently, but over the last six months, the pain has been relatively severe and constant. She says that today her pain is 7-8/10. Standing and walking increases her pain. Lying down flat helps. 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 She says it is very difficult because of the pain. She has been taking Lyrica and Percocet for years because of pain. Years ago, she underwent physical therapy for her lower back pain. She has also had epidural steroid injections as well as ablations years ago. Currently, she is receiving lumbar epidural steroid injections. CURRENT MEDICATIONS: Diclofenac, Flexeril, Percocet, Lyrica. PAST MEDICAL HISTORY: Arthritis, headaches. PAST SURGICAL HISTORY: Left knee surgery, right shoulder surgery, hysterectomy, deviated septum, left arm. FAMILY HISTORY: Brain tumor, cancer, diabetes, heart disease, hypertension, headaches. 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 . Does not smoke. Drinks alcohol 1-2 times per week. ALLERGIES: No known drug allergies. REVIEW OF SYSTEMS: A 12-point review of systems was performed and is noncontributory except that mentioned above. PHYSICAL EXAMINATION: GENERAL: Alert, pleasant, in no acute distress. HEENT: Head is normocephalic, atraumatic. SKIN: Warm and dry. MUSCULOSKELETAL: Lumbar paraspinal muscle bulk is normal, restricted range of motion of the lumbar spine, bibp-sy-jzalalgd tenderness of the lower lumbar spine with palpation, normal range of motion of the lower extremities bilaterally. EXTREMITIES: No clubbing, cyanosis or edema. NEUROLOGIC: Alert and oriented x 3. Strength is 5/5 in the lower extremities, sensory was intact to light touch in the lower extremities. Reflexes were present and symmetric in the lower extremities bilaterally, positive straight leg raising on the right, negative straight leg raising on the left, normal gait. IMAGING: I reviewed her lumbar MRI scan. On that study, there is moderately sized synovial cyst at L4-L5 on the right, which abuts and displaces the descending right L5 nerve root within the subarticular recess. ASSESSMENT AND PLAN: I believe the synovial cyst on the right at L4-L5 is responsible for a significant portion of her pain. I am recommending a lumbar microsurgical decompression to remove the cyst to decompress the nerve roots. I outlined the surgery and the risk as well as the expected postoperative course. She understands. She would like to proceed. LOTUS DR: Lakshmi TID: [id number]
[~2021-06-23] VITALS: Ht 177.8 cm; Wt 107.7 kg
[~2021-06-23 10:43] MED LIST changes: +DEXAMETHASONE SOD PHOS 4 MG/ML VIAL ONE; -DOCU-109 PO; +HYDROmorphone 2 MG/ML INJ. IVP PRN; +IV RINGERS,LACTATED 1000ML 1,000 ML IV SCH; +LIDOCAINE 2% PF 5 ML VIAL. ONE; -METH-562 PO; +MIDAZOLAM HCL/PF 2 MG/2 ML VIAL. ONE; +MORPHINE SULFATE 2 MG/ML INJ. IVP PRN; +ONDANSETRON PF 4 MG/2 ML VIAL. ONE; +PHENYLEPHRINE 10 MG/ML VIAL. ONE; +PROCHLORPERAZINE 10 MG/2 ML VIAL. IVP PRN; +PROPOFOL 10 MG/ML (20ML) VIAL. IV ONE; +PROPOFOL 50 ML IV ONE; +REMIFENTANIL 1 MG VIAL. IV ONE; +ROCURONIUM 50 MG/5 ML VIAL. ONE; +SUCCINYLCHOLINE 200 MG/10 ML VIAL. ONE; +ceFAZolin SODIUM 1 GM in IV NORMAL SALINE 1000ML BAG 1,000 ML IRR ONE; +fentaNYL PF VIAL 100 MCG/2 ML VIAL IVP PRN; +fentaNYL PF VIAL 100 MCG/2 ML VIAL ONE
[2021-06-23] MEDS ORDERED: KETOROLAC 60 MG/2 ML VIAL. ONE (10:51)
[2021-06-23] MEDS ORDERED: THROMBIN TOPICAL 20,000 UNIT SPRAY.SYRN KIT TP ONE (10:51)
[2021-06-23] MEDS ORDERED: KETAMINE HCL IN NACL, ISO-OSM 50 MG/5 ML SYRINGE ONE (10:51)
[2021-06-23] MEDS ORDERED: BUPIVACAINE-EPI 0.5% 30 ML VIAL KIT. ONE (10:51)
[2021-06-23] MEDS ORDERED: GELATIN SPONGE SIZE 100. ONE (10:51)
[2021-06-23 11:24] VITALS: BP 139/97
[2021-06-23] MEDS ORDERED: GLYCOPYRROLATE 1 MG/5 ML VIAL. ONE (11:50)
[2021-06-23] MEDS ORDERED: NEOSTIGMINE METHYLSULFATE 5 MG/5 ML SYRINGE. ONE (11:51)
[2021-06-23] MEDS ORDERED: HYDROmorphone 2 MG/ML INJ. ONE (13:00)
[2021-06-23] MEDS ORDERED: METH-562 PO (15:24)
[2021-06-23] MEDS ORDERED: DOCU-109 PO (15:24)
--- NOTE | 2021-06-23 15:25 | DISCH ---
DISCHARGE INSTRUCTIONS Condition on Discharge Condition on Discharge: Stable Activity After Discharge Activity Instructions for Disc: Activity as tolerated, Avoid exertion Other activity instructions: no driving for a week Bathing Instructions: Shower-keep dressing dry, No Tub Bath until see Lifting Instructions after Dis: No heavy lifting, No pulling or pushing, Do not lift >10 pounds Driving Instructions after Dis: Other, see below Weight Bearing Status after Di: No restrictions Diet after Discharge Diet after Discharge: Regular Diet Texture: Regular Liquid Texture: Thin Liquid Swallowing Supervision: None needed Wound Incision Care Wound/Incision Care: Ice to area for comfort Other wound/incision instructi: may remove dressing in 48 hours if dy then may shower, no soaking Wound Care Equipment: Dressings Contacting the DRTrish after DC Call your doctor for: Concerns you may have Follow-Up Follow up with: Dr. Oneal's nurse in 2 weeks [phone] Treatment/Equipment after DC Adaptive Equipment Issued: None NYLA ONEAL MD June 23, 2021 15:25
[2021-06-23] MEDS ORDERED: fentaNYL PF VIAL 100 MCG/2 ML VIAL ONE (16:15)
[2021-06-23] MEDS ORDERED: oxyCODONE/APAP 7.5/325 1 TAB TABLET PO ONE (16:15)
[2021-06-23] MEDS: fentaNYL PF VIAL 100 MCG/2 ML VIAL IVP PRN ×2 (16:17→16:23)
[2021-06-23 16:55] VITALS: BP 144/80
--- NOTE | 2021-06-24 01:00 | OP ---
DATE OF SURGERY: 06/23/2021 PREOPERATIVE DIAGNOSES: Synovial cyst with nerve root compression and severe radiculopathy right L4-L5. POSTOPERATIVE DIAGNOSES: Synovial cyst with nerve root compression and severe radiculopathy right L4-L5. OPERATION PERFORMED: Hemilaminotomy with microscopic dissection and removal of synovial cyst L4-L5 right, decompression of dura and nerve root. SURGEON: Raz Childers M.D. TRAIN RESERVATION CLERK: Jada Goldstein APRN; assisted with the exposure and removal of the synovial cyst as well as closure. OPERATIVE INDICATIONS: The patient is a pleasant 46-year-old who had difficulty low back pain and pain, which radiated to her right hip primarily. The problem has been present for 6 years and slowly worsening. She failed to improve with conservative measures. On imaging studies, there was a large right-sided synovial cyst at L4-L5, which I brought in displaced the descending right L5 root. I recommended lumbar microsurgery to decompress this region. I removed the synovial cyst. She understood, she wished me to go ahead. DESCRIPTION OF PROCEDURE: Following general endotracheal anesthesia, the patient was positioned prone on the Joaquin table. Lumbar region prepped and draped in standard fashion. MARIO hose and AV impulse boots were applied for DVT prophylaxis. A microscope was draped, fluoroscopy was draped and brought into field. Monitoring was established. Ancef 2 grams was given less than one hour prior to initiation of surgery. Using fluoroscopic guidance, incision was made directly over the L4-L5 interspace and I dissected down through skin and subcutaneous tissue, reflected the paraspinal muscles, placed a Atlas microdisk retractor, brought in the microscope and using high speed air drill, I burred down a generous hemilaminotomy. I did carry this slightly farther than usual superolaterally, inferiorly performing a partial foraminotomy. I then grasped ligamentum flavum and gently began to pull it inferiorly and laterally and the used the 90 degree Kerrison to trim along the midline and to free up the midline attachments of the ligamentum. I worked inferiorly and freed the ligamentum below the synovial cyst and then worked superiorly and again in a very cautious fashion with micro instruments, I the dura from the ligament and trimmed this superiorly. I then gently rolled the ligament from medial to lateral and using micro instruments as well as a curved arachnoid knife, gently the dura from the cyst. I then rolled it laterally, I was able to get a complete removal of the cyst. I trimmed this away superiorly, laterally and inferiorly and removed it and then drilled and removed any possible vestige of attachments to the facets. I explored and palpated the disc, it was slightly bulging, but very firm and no discectomy was warranted. I then worked out and ensured the foramen was opened and the dura was quite free and mobile. I then irrigated with antibiotic solution. I removed the retractor and obtained hemostasis in the muscle. I closed the wound with absorbable suture and skin was closed with a 4-0 subcuticular stitch and surgery went very well. RAYMON/NOLAN/SAURAV DR: Amaya TIHerrera: [id number] MELBA
--- NOTE | 2021-06-29 07:46 | PATHOLOGY ---
[facility] Accession Number: [id number] . 01 Material submitted: . vertebral column - LUMBAR DECOMPRESSION SYNOVIAL CYST . 01 Clinical history: . RADICULOPATHY, SYNOVIAL CYST . 02 Diagnosis: Segments of fibrocartilaginous, fibroadipose, skeletal muscle, and synovial tissue and bone, lumbar decompression and synovial cyst removal: - Degenerative changes of fibrocartilaginous tissue. - Synovial cyst showing focal recent hemorrhage, reactive fibrosis, and hemosiderin-laden macrophages. LBQ 06/28/2021 1512 Local . 02 Comment: There is no evidence of an acute inflammatory process or malignancy. (JPM/db; 06/28/2021) . 02 Electronically signed: . George Onofre MD, Pathologist NPI- [id number] . 01 Gross description: . The specimen is received in formalin, labeled "Rosa Maria, Denice, lumbar decompression and synovial cyst" and consists of multiple barrios-weeks rubbery irregular tissues aggregating 3.3 x 3.0 x 0.6 cm. Sectioning through the largest tissue reveals weeks to pale yellow rubbery cut surfaces. Geoscience Specialist sections are submitted in 2 cassettes. ([place]; 06/25/2021) DKA/DKA 06/28/2021 1510 Local . 02 Pathologist provided ICD-10: M54.10, M71.30 . 02 CPT . 124677, [id number] Specimen Comment: A courtesy copy of this report has been sent to [phone], [phone] Specimen Comment: [id number] Specimen Comment: Report sent to / DR MAR Performed at: [address], [place], [place] [id number] MD Anurag Brambila MD Phone: [phone] Performed at: [id number] [place], [place] [id number] MD George Onofre MD Phone: [phone]
== END 2021-06-23 17:30 | disposition home or self-care (01) ==
LOC: SURG 10:43
PROVIDERS: ATTEND Neurological Surgery
DX: M54.16 Radiculopathy, lumbar region (principal); M71.38 Other bursal cyst, other site; M19.90 Unspecified osteoarthritis, unspecified site; Z82.49 Family history of ischemic heart disease and other diseases of the circulatory system; Z83.3 Family history of diabetes mellitus; Z98.890 Other specified postprocedural states; Z79.899 Other long term (current) drug therapy
CPT/HCPCS: 76000; 88304; 88311; A4222; A4364; A4556; A4657; A4930; A6254; A6258; J0330; J0690; J1100; J1170; J1885; J2250; J2370; J2405; J2704; J2710; J3010; J3490; J7030